=== PATIENT | male | born 1960 | race African-American/Black ===

== ENCOUNTER → 2016-05-06 | Outpatient (CLI) | payer OTHER | LOC: HEDF 17:45 | DX: S89.81XA Other specified injuries of right lower leg, initial encounter (principal); V09.29XA Pedestrian injured in traffic accident involving other motor vehicles, initial encounter; Y92.410 Unspecified street and highway as the place of occurrence of the external cause; Y93.89 Activity, other specified; Y99.0 Civilian activity done for income or pay | CPT/HCPCS: A0431; A0436 ==